=== PATIENT | female | born 1985 | race Caucasian/White ===

== ENCOUNTER → 2020-03-05 | Emergency (ER) | payer OTHER ==
[~2020-03-05] VITALS: Ht 157.5 cm; Wt 68.0 kg
[~2020-03-05] MED LIST: DHA100 MG PO; FOLIC ACID1 MG PO; PRENATAL CAPLE1 EACH PO; PRENATAL TABLE1 EAC1 PO
== END | disposition home or self-care (01) ==
LOC: ER 08:08
DX: B33.8 Other specified viral diseases (principal); B96.0 Mycoplasma pneumoniae [M. pneumoniae] as the cause of diseases classified elsewhere; Z03.818 Encounter for observation for suspected exposure to other biological agents ruled out

== ENCOUNTER 2020-03-10 10:54 | Emergency (ER) | payer OTHER ==
[~2020-03-10] VITALS: Ht 152.4 cm; Wt 68.0 kg
== END 2020-03-10 17:18 | disposition home or self-care (01) ==
LOC: ER 10:54
DX: R00.2 Palpitations (principal); T36.3X5A Adverse effect of macrolides, initial encounter; B96.0 Mycoplasma pneumoniae [M. pneumoniae] as the cause of diseases classified elsewhere; Z03.818 Encounter for observation for suspected exposure to other biological agents ruled out